=== PATIENT | female | born 1930 | race Caucasian/White ===

== ENCOUNTER 2017-12-29 09:02 | Emergency (ER) | payer MEDICARE, BC ==
[2017-12-29] MEDS ORDERED: Sodium Chloride 0.9% 10 ML Syringe FLUSH PRN (09:22)
[2017-12-29 09:32] VITALS: BP 143/92
[2017-12-29] MEDS ORDERED: Furosemide 40 MG/4 ML VIAL IV ONE (10:17)
[2017-12-29 10:19] LABS: CHLORIDE,CL 104 mmol/L (98-107)
[2017-12-29 10:23] LABS: SODIUM,NA 138 mmol/L (136-145)
--- NOTE | 2017-12-29 10:54 | EDM.PDOC ---
ED HPI GENERAL MEDICAL PROBLEM - General Chief Complaint: Respiratory Problem Stated Complaint: SOB Time Seen by Provider: 12/29/17 09:20 Source of Information: Reports: Patient - History of Present Illness INITIAL COMMENTS - FREE TEXT/NARRATIVE: Patient describes shortness of breath that started later last night and has worsened over the morning. She has noted a recent weight gain, but cannot tell me the amount. History of heart failure, stent placement. Denies chest pressure or pressure, no numbness or tingling or pain to her arms, jaw, or back. Onset: Gradual Onset Date: 12/28/17 Duration: Getting Worse Location: Reports: Chest Associated Symptoms: Reports: Shortness of Breath Chest Pain Score (Numeric/FACES): 4 - Related Data Allergies Allergy/AdvReac Type Severity Reaction Status Date / Time terazosin HCl [From Hytrin] Allergy Hives Verified 12/29/17 09:26 enalapril maleate AdvReac Cough Verified 12/29/17 09:26 [From Vasotec] enalaprilat dihydrate AdvReac Cough Verified 12/29/17 09:26 [From Vasotec] esomeprazole magnesium AdvReac Pain Verified 12/29/17 09:26 [From Nexium] gabapentin [From Neurontin] AdvReac Edema Verified 12/29/17 09:26 hydrocodone AdvReac Diarrhea Verified 12/29/17 09:26 levofloxacin [From Levaquin] AdvReac Edema Verified 12/29/17 09:26 losartan potassium AdvReac Cough Verified 12/29/17 09:26 [From Cozaar] Penicillins AdvReac Dizziness Verified 12/29/17 09:26 pramipexole di-HCl AdvReac Nausea Verified 12/29/17 09:26 [From Mirapex] procainamide [Procainamide] AdvReac Headache Verified 12/29/17 09:26 tetanus toxoid, adsorbed AdvReac Edema Verified 12/29/17 09:26 Home Meds: Home Meds Acetaminophen [Mapap] 325 - 650 mg PO Q4HR PRN 01/05/14 [History] Aspirin [Halfprin] 162 mg PO DAILY 01/05/14 [History] Calcium Carbonate/Vitamin D3 [Caltrate 600 Plus D3 Tablet] 1 tab PO DAILY [History] Fluticasone Propionate [Flonase] 2 spray NASBOTH DAILY 01/05/14 [History] Meclizine [Antivert] 12.5 mg PO Q8HR PRN 01/05/14 [History] Nitroglycerin [Nitrostat] 0.4 mg SL ASDIRECTED PRN 01/05/14 [History] Pravastatin [Pravachol] 80 mg PO DAILY 01/05/14 [History] Albuterol Sulfate [Proventil Hfa] 1 - 2 puff INH Q4H PRN 06/22/15 [History] Sodium Chloride 0.65% [[place] Saline] 2 spray NASBOTH DAILY 06/22/15 [History] Furosemide [Lasix] 20 mg PO DAILY #30 tablet 06/25/15 [Rx] Magnesium 250 mg PO BID #0 06/25/15 [Rx] Potassium Chloride 10 meq PO DAILY #30 capsule.er 06/25/15 [Rx] Warfarin [Coumadin] 1.25 - 2.5 mg PO BEDTIME 06/25/15 [History] Amiodarone [Pacerone] 100 mg PO BID 09/13/15 [History] Cefadroxil [Duricef] 500 mg PO Q12HR #14 cap 07/31/17 [Rx] Past Medical History Cardiovascular History: Reports: CAD, Heart Failure, High Cholesterol, Hypertension Other Cardiovascular History: a. flutter Gastrointestinal History: Reports: PUD Genitourinary History: Reports: Renal Disease Endocrine/Metabolic History: Reports: Diabetes, Type II - Past Surgical History Cardiovascular Surgical History: Reports: Other (See Below) ED ROS GENERAL - Review of Systems Review Of Systems: See Below Constitutional: Reports: No Symptoms HEENT: Reports: No Symptoms Respiratory: Reports: Shortness of Breath Cardiovascular: Reports: No Symptoms Endocrine: Reports: No Symptoms GI/Abdominal: Reports: No Symptoms : Reports: No Symptoms Musculoskeletal: Reports: No Symptoms Skin: Reports: No Symptoms Neurological: Reports: No Symptoms Psychiatric: Reports: No Symptoms Hematologic/Lymphatic: Reports: No Symptoms Immunologic: Reports: No Symptoms ED EXAM, GENERAL - Physical Exam Exam: See Below Exam Limited By: No Limitations General Appearance: Alert, WD/WN, No Apparent Distress Eye Exam: Bilateral Eye: Normal Inspection, PERRL Ears: Normal TMs Nose: Normal Inspection, Normal Mucosa, No Blood Throat/Mouth: Normal Inspection, Normal Lips, Normal Teeth, Normal Gums, Normal Oropharynx, Normal Voice, No Airway Compromise Head: Atraumatic, Normocephalic Neck: Normal Inspection, Supple, Non-Tender, Full Range of Motion Respiratory/Chest: Decreased Breath Sounds, Crackles Cardiovascular: Normal Peripheral Pulses, Regular Rate, Rhythm, No Edema, No Gallop, No JVD, No Murmur, No Rub Peripheral Pulses: 2+: Radial (L), Radial (R), Posterior Tibial (L), Posterior Tibial (R), Dorsalis Pedis (L), Dorsalis Pedis (R) GI/Abdominal: Normal Bowel Sounds, Soft, Non-Tender, No Organomegaly, No Distention, No Abnormal Bruit, No Mass Extremities: Normal Inspection, Normal Range of Motion, Non-Tender, Normal Capillary Refill, No Pedal Edema Neurological: Alert, Oriented, CN II-XII Intact, Normal Cognition, Normal Gait, Normal Reflexes, No Motor/Sensory Deficits Psychiatric: Normal Affect, Normal Mood Skin Exam: Warm, Dry, Intact, Normal Color, No Rash Lymphatic: No Adenopathy EKG INTERPRETATION EKG Date: 12/29/17 Time: 09:12 Rhythm: A-Fib Rate (Beats/Min): 89 [place]: Normal P-Wave: Absent QRS: Normal ST-T: Normal QT: Normal Comparison: No Change EKG Interpretation Comments: atrial fibrillation with aberrant conduction or PVC's old anterior MA Course - Vital Signs Last Recorded V/S: Last Vital Signs Temp 36.8 C 12/29/17 09:05 Pulse 92 12/29/17 09:05 Resp 20 12/29/17 09:05 BP 143/92 H 12/29/17 09:05 Pulse Ox 91 L 12/29/17 09:05 - Orders/Labs/Meds Labs: Laboratory Tests 12/29/17 12/29/17 12/29/17 Range/Units 09:45 09:45 09:45 WBC 5.7 (4.0-10.0) x10^3/uL RBC 4.13 (4.00-5.50) x10^6/uL Hgb 13.0 D (12.0-16.0) g/dL Hct 39.7 (33.0-47.0) % MCV 96.1 H D (78.0-93.0) fL MCH 31.5 (26.0-32.0) pg MCHC 32.7 (32.0-36.0) g/dL RDW Coeff of Yoel 13.6 (10.0-15.0) % Plt Count 163 (130-400) x10^3/uL Neut % (Auto) 74.1 (50.0-80.0) % Lymph % (Auto) 16.9 L (25.0-50.0) % [place] % (Auto) 7.4 (2.0-11.0) % Eos % (Auto) 1.4 (0.0-4.0) % Baso % (Auto) 0.2 (0.2-1.2) % PT 29.5 H (9.6-11.4) SEC INR 2.8 (2.0-3.5) D-Dimer, Quantitative 0.49 (<=0.58) mg/LFEU Sodium 138 (136-145) mmol/L Potassium 3.8 (3.5-5.1) mmol/L Chloride 104 (98-107) mmol/L Carbon Dioxide 24 (21-32) mmol/L Anion Gap 13.8 (10-20) mmol/L BUN 23 H (7-18) mg/dL Creatinine 1.3 H (0.55-1.02) mg/dL Est Cr Clr Drug Dosing 28.54 mL/min Estimated GFR (MDRD) 39 Glucose 156 H (74-106) mg/dL Calcium 8.6 (8.5-10.1) mg/dL Corrected Calcium 9.16 (8.5-10.1) mg/dL Magnesium (1.8-2.4) mg/dL Total Bilirubin 0.7 (0.2-1.0) mg/dL AST 19 (15-37) U/L ALT 29 (14-59) U/L Alkaline Phosphatase 81 (46-116) U/L Troponin I < 0.017 (<=0.056) ng/mL NT-Pro-B Natriuret Pep 4383 H (<=450) pg/mL Total Protein 7.0 (6.4-8.2) g/dL Albumin 3.3 L (3.4-5.0) g/dL Globulin 3.7 Albumin/Globulin Ratio 0.89 05/16/18 Range/Units 09:45 WBC (4.0-10.0) x10^3/uL RBC (4.00-5.50) x10^6/uL Hgb (12.0-16.0) g/dL Hct (33.0-47.0) % MCV (78.0-93.0) fL MCH (26.0-32.0) pg MCHC (32.0-36.0) g/dL RDW Coeff of Yoel (10.0-15.0) % Plt Count (130-400) x10^3/uL Neut % (Auto) (50.0-80.0) % Lymph % (Auto) (25.0-50.0) % [place] % (Auto) (2.0-11.0) % Eos % (Auto) (0.0-4.0) % Baso % (Auto) (0.2-1.2) % PT (9.6-11.4) SEC INR (2.0-3.5) D-Dimer, Quantitative (<=0.58) mg/LFEU Sodium (136-145) mmol/L Potassium (3.5-5.1) mmol/L Chloride (98-107) mmol/L Carbon Dioxide (21-32) mmol/L Anion Gap (10-20) mmol/L BUN (7-18) mg/dL Creatinine (0.55-1.02) mg/dL Est Cr Clr Drug Dosing mL/min Estimated GFR (MDRD) Glucose (74-106) mg/dL Calcium (8.5-10.1) mg/dL Corrected Calcium (8.5-10.1) mg/dL Magnesium 2.0 (1.8-2.4) mg/dL Total Bilirubin (0.2-1.0) mg/dL AST (15-37) U/L ALT (14-59) U/L Alkaline Phosphatase (46-116) U/L Troponin I (<=0.056) ng/mL NT-Pro-B Natriuret Pep (<=450) pg/mL Total Protein (6.4-8.2) g/dL Albumin (3.4-5.0) g/dL Globulin Albumin/Globulin Ratio Meds: Medications Discontinued Medications Generic Name Dose Route Start Last Admin Trade Name Freq PRN Reason Stop Dose Admin Furosemide 40 mg 12/29/17 10:17 12/29/17 10:25 Lasix IV 12/29/17 10:18 40 mg ONETIME ONE Administration Sodium Chloride 10 ml 12/29/17 09:22 Saline Flush FLUSH ASDIRECTED PRN Keep Vein Open - Re-Assessments/Exams Free Text/Narrative Re-Assessment/Exam: 01/03/18 12:32 I did discuss care with Dr. Tate on 12/29/17. Determined to discharge and increase lasix to BID with clinic visit Departure - Departure Time of Disposition: 11:15 Disposition: Home, Self-Care 01 Condition: Fair Clinical Impression: Diastolic CHF Qualifiers: Qualified Code(s): I50.31 - Acute diastolic (congestive) heart failure - Discharge Information Instructions: Heart Failure, [id number] Referrals: Snehal Tate, [Primary Care Provider] - Forms: ED Department Discharge Additional Instructions: Please follow up with Dr. Tate this week. Take 2 doses of your lasix/furosemide daily. So please take 20 mg in the AM and 20 mg again around 2 pm Make sure to return to the ER if you have any worsening of your shortness of breath You should weigh yourself daily to monitor your fluid levels and call your primary doctor with any 2-3 pound overnight weight gain or weight gain over 5 pounds in 2-3 days Please make sure to limit your salt intake Call the ER if you have any further questions or concerns. - Problem List & Annotations (1) Diastolic CHF SNOMED Code(s): 291140914, [id number] Code(s): I50.30 - UNSPECIFIED DIASTOLIC (CONGESTIVE) HEART FAILURE Status: Acute Priority: Medium - Problem List Review Problem List Initiated/Reviewed/Updated: Yes - Assessment/Plan Assessment:: CHF exacerbation Plan: Please follow up with Dr. Tate this week. Take 2 doses of your lasix/furosemide daily. So please take 20 mg in the AM and 20 mg again around 2 pm Make sure to return to the ER if you have any worsening of your shortness of breath You should weigh yourself daily to monitor your fluid levels and call your primary doctor with any 2-3 pound overnight weight gain or weight gain over 5 pounds in 2-3 days Please make sure to limit your salt intake Call the ER if you have any further questions or concerns.
== END 2017-12-29 11:15 | disposition home or self-care (01) ==
LOC: VM.ED 09:02
DX: I11.0 Hypertensive heart disease with heart failure (principal); I50.31 Acute diastolic (congestive) heart failure; E78.00 Pure hypercholesterolemia, unspecified; E11.9 Type 2 diabetes mellitus without complications; Z88.8 Allergy status to other drugs, medicaments and biological substances; Z88.5 Allergy status to narcotic agent; Z88.1 Allergy status to other antibiotic agents; Z88.7 Allergy status to serum and vaccine; Z79.82 Long term (current) use of aspirin; Z79.899 Other long term (current) drug therapy
CPT/HCPCS: 36415; 71045; 80053; 83735; 83880; 84484; 85025; 85379; 85610; 93005; 96374; 99285; J1940

== ENCOUNTER 2018-08-21 09:16 | Emergency (ER) | payer MEDICARE, BC ==
[2018-08-21 09:36] VITALS: BP 164/83
[2018-08-21] MEDS ORDERED: Furosemide 40 MG/4 ML VIAL IV ONE (09:36)
[2018-08-21] MEDS ORDERED: Sodium Chloride 0.9% 10 ML Syringe FLUSH PRN (09:36)
--- NOTE | 2018-08-21 10:14 | CR ---
[id number] RAD/RAD Chest PA And Lateral EXAM: RAD Chest PA And Lateral CLINICAL DATA: SYNCOPE. BRADYCARDIA. COMPARISON: CORRELATION IS MADE WITH THE EXAM OF DECEMBER 29, 2017. FINDINGS: There is mild edema. There are small bilateral effusions. The cardiomediastinal contour is stable. IMPRESSION: MILD TO MODERATE CHF. Vasiliy Bender MD 08/21/18 1013 Thank you for allowing us to participate in the care of your patient.
[2018-08-21 10:18] LABS: CHLORIDE,CL 106 mmol/L (98-107); SODIUM,NA 142 mmol/L (136-145)
[2018-08-21 10:22] LABS: ANION GAP 13.8 mmol/L (10-20)
--- NOTE | 2018-08-21 20:12 | EDM.PDOC ---
ED HPI GENERAL MEDICAL PROBLEM - General Chief Complaint: Cardiovascular Problem Time Seen by Provider: 08/21/18 09:25 Source of Information: Reports: Patient History Limitations: Reports: No Limitations - History of Present Illness INITIAL COMMENTS - FREE TEXT/NARRATIVE: Pt. presents to ER with complaints of weight gain and shortness of breath over the past 10 days. Denies any cough. No chest congestion. No fever or chills. She denies any substernal chest, jaw, arm, neck or back pain. Pt. states that she has CHF and takes lasix 20mg PO BID. She states that the onset of the symptoms have been gradual in nature. Onset: Today Onset Date: 08/21/18 Onset Time: 20:10 Location: Reports: Generalized - Related Data Allergies Allergy/AdvReac Type Severity Reaction Status Date / Time terazosin HCl [From Hytrin] Allergy Hives Verified 08/21/18 09:30 enalapril maleate AdvReac Cough Verified 08/21/18 09:30 [From Vasotec] enalaprilat dihydrate AdvReac Cough Verified 08/21/18 09:30 [From Vasotec] esomeprazole magnesium AdvReac Pain Verified 08/21/18 09:30 [From Nexium] gabapentin [From Neurontin] AdvReac Edema Verified 08/21/18 09:30 hydrocodone AdvReac Diarrhea Verified 08/21/18 09:30 levofloxacin [From Levaquin] AdvReac Edema Verified 08/21/18 09:30 losartan potassium AdvReac Cough Verified 08/21/18 09:30 [From Cozaar] Penicillins AdvReac Dizziness Verified 08/21/18 09:30 pramipexole di-HCl AdvReac Nausea Verified 08/21/18 09:30 [From Mirapex] procainamide [Procainamide] AdvReac Headache Verified 08/21/18 09:30 tetanus toxoid, adsorbed AdvReac Edema Verified 08/21/18 09:30 Home Meds: Home Meds Acetaminophen [Mapap] 325 - 650 mg PO Q4HR PRN 01/05/14 [History] Aspirin [Halfprin] 162 mg PO DAILY 01/05/14 [History] Calcium Carbonate/Vitamin D3 [Caltrate 600 Plus D3 Tablet] 1 tab PO DAILY [History] Fluticasone Propionate [Flonase] 2 spray NASBOTH DAILY 01/05/14 [History] Meclizine [Antivert] 12.5 mg PO Q8HR PRN 01/05/14 [History] Nitroglycerin [Nitrostat] 0.4 mg SL ASDIRECTED PRN 01/05/14 [History] Pravastatin [Pravachol] 80 mg PO DAILY 01/05/14 [History] Albuterol Sulfate [Proventil Hfa] 1 - 2 puff INH Q4H PRN 06/22/15 [History] Sodium Chloride 0.65% [[place] Saline] 2 spray NASBOTH DAILY 06/22/15 [History] Furosemide [Lasix] 20 mg PO DAILY #30 tablet 06/25/15 [Rx] Magnesium 250 mg PO BID #0 06/25/15 [Rx] Potassium Chloride 10 meq PO DAILY #30 capsule.er 06/25/15 [Rx] Warfarin [Coumadin] 1.25 - 2.5 mg PO BEDTIME 06/25/15 [History] Amiodarone [Pacerone] 100 mg PO BID 09/13/15 [History] Cefadroxil [Duricef] 500 mg PO Q12HR #14 cap 07/31/17 [Rx] Past Medical History Cardiovascular History: Reports: CAD, Heart Failure, High Cholesterol, Hypertension Other Cardiovascular History: a. flutter Respiratory History: Reports: Pneumonia, Recurrent, Other (See Below) Other Respiratory History: chronic cough Gastrointestinal History: Reports: PUD Genitourinary History: Reports: Renal Disease Neurological History: Reports: Vertigo Endocrine/Metabolic History: Reports: Diabetes, Type II Dermatologic History: Reports: Cellulitis - Past Surgical History Cardiovascular Surgical History: Reports: Other (See Below) Social & Family History - Tobacco Use Smoking Status *Q: Never Smoker ED ROS GENERAL - Review of Systems Review Of Systems: See Below Constitutional: Reports: No Symptoms HEENT: Reports: No Symptoms Respiratory: Reports: Shortness of Breath. Denies: Cough, Sputum Cardiovascular: Reports: No Symptoms, Blood Pressure Problem, Dyspnea on Exertion, Edema. Denies: Chest Pain Endocrine: Reports: No Symptoms GI/Abdominal: Reports: No Symptoms : Reports: No Symptoms Musculoskeletal: Reports: No Symptoms Skin: Reports: No Symptoms Neurological: Reports: No Symptoms Psychiatric: Reports: No Symptoms Hematologic/Lymphatic: Reports: No Symptoms Immunologic: Reports: No Symptoms ED EXAM, GENERAL - Physical Exam Exam: See Below General Appearance: Alert, WD/WN, No Apparent Distress Head: Atraumatic, Normocephalic Neck: Normal Inspection, Supple, Non-Tender, Full Range of Motion Respiratory/Chest: No Respiratory Distress, No Accessory Muscle Use, Crackles Cardiovascular: Normal Peripheral Pulses, Regular Rate, Rhythm, No Edema, No Gallop, No JVD, No Murmur, No Rub Peripheral Pulses: 3+: Radial (L), Radial (R) GI/Abdominal: Normal Bowel Sounds, Soft, Non-Tender, No Organomegaly, No Distention, No Abnormal Bruit, No Mass (Female) Exam: Deferred Rectal (Female) Exam: Deferred Back Exam: Normal Inspection, Full Range of Motion, NT Extremities: Normal Inspection, Normal Range of Motion, Non-Tender, Normal Capillary Refill, Other (3+ peripheral edema noted) Neurological: Alert, Oriented, CN II-XII Intact, Normal Cognition, Normal Gait, Normal Reflexes, No Motor/Sensory Deficits Psychiatric: Normal Affect, Normal Mood Skin Exam: Pallor Lymphatic: No Adenopathy Course - Vital Signs Last Recorded V/S: Last Vital Signs Temp 35.6 C 08/21/18 09:20 Pulse 103 H 08/21/18 09:20 Resp 18 08/21/18 09:20 BP 164/83 H 08/21/18 09:20 Pulse Ox 95 08/21/18 09:20 - Orders/Labs/Meds Orders: Active Orders 24 hr Category Date Time Status EKG Documentation Completion [RC] STAT Care 08/21/18 09:35 Active Peripheral IV Insertion Adult [OM.PC] Routine Oth 08/21/18 09:36 Ordered Labs: Laboratory Tests 08/21/18 08/21/18 08/21/18 Range/Units 09:45 09:45 09:45 WBC 5.8 (4.0-10.0) x10^3/uL RBC 4.23 (4.00-5.50) x10^6/uL Hgb 13.2 (12.0-16.0) g/dL Hct 41.0 (33.0-47.0) % MCV 96.9 H (78.0-93.0) fL MCH 31.2 (26.0-32.0) pg MCHC 32.2 (32.0-36.0) g/dL RDW Coeff of Yoel 13.9 (10.0-15.0) % Plt Count 152 (130-400) x10^3/uL Neut % (Auto) 68.8 (50.0-80.0) % Lymph % (Auto) 21.1 L (25.0-50.0) % [place] % (Auto) 8.9 (2.0-11.0) % Eos % (Auto) 0.9 (0.0-4.0) % Baso % (Auto) 0.3 (0.2-1.2) % PT 18.6 H D (9.6-11.4) SEC INR 1.8 L (2.0-3.5) Sodium 142 (136-145) mmol/L Potassium 3.8 (3.5-5.1) mmol/L Chloride 106 (98-107) mmol/L Carbon Dioxide 26 (21-32) mmol/L Anion Gap 13.8 (10-20) mmol/L BUN 27 H (7-18) mg/dL Creatinine 1.4 H (0.55-1.02) mg/dL Est Cr Clr Drug Dosing 26.50 mL/min Estimated GFR (MDRD) 36 Glucose 143 H (74-106) mg/dL Calcium 9.1 (8.5-10.1) mg/dL Corrected Calcium 9.66 (8.5-10.1) mg/dL Total Bilirubin 1.1 H (0.2-1.0) mg/dL AST 21 (15-37) U/L ALT 23 (14-59) U/L Alkaline Phosphatase 93 (46-116) U/L Troponin I < 0.017 (<=0.056) ng/mL NT-Pro-B Natriuret Pep 5836 H (<=450) pg/mL Total Protein 7.3 (6.4-8.2) g/dL Albumin 3.3 L (3.4-5.0) g/dL Globulin 4.0 Albumin/Globulin Ratio 0.83 Meds: Medications Discontinued Medications Generic Name Dose Route Start Last Admin Trade Name Freq PRN Reason Stop Dose Admin Furosemide 40 mg 08/21/18 09:36 08/21/18 09:56 Lasix IV 08/21/18 09:37 40 mg ONETIME ONE Administration Sodium Chloride 10 ml 08/21/18 09:36 Saline Flush FLUSH ASDIRECTED PRN Keep Vein Open - Radiology Interpretation Free Text/Narrative:: mild fluid overload on chest x-ray Departure - Departure Time of Disposition: 11:00 Disposition: Home, Self-Care 01 Condition: Good Clinical Impression: CHF (congestive heart failure) Instructions: Heart-Healthy Eating Plan, [id number], Heart Failure, Easy-to- Read Referrals: PCP,Unknown [Primary Care Provider] - Forms: ED Department Discharge Additional Instructions: Increase lasix to 2 tablets in the AM and 12 tablet at noon for 7 days. Decrease your intake of sodium. Take your weight daily. Follow-up with Dr. Tate in 7-10 days. - My Orders Last 24 Hours: My Active Orders 08/21/18 09:35 EKG Documentation Completion [RC] STAT 08/21/18 09:36 Peripheral IV Insertion Adult [OM.PC] Routine - Assessment/Plan Last 24 Hours: My Active Orders 08/21/18 09:35 EKG Documentation Completion [RC] STAT 08/21/18 09:36 Peripheral IV Insertion Adult [OM.PC] Routine Plan: Increase lasix to 2 tablets in the AM and 12 tablet at noon for 7 days. Decrease your intake of sodium. Take your weight daily. Follow-up with Dr. Tate in 7-10 days.
== END 2018-08-21 11:08 | disposition home or self-care (01) ==
LOC: VM.ED 09:16
DX: I11.0 Hypertensive heart disease with heart failure (principal); I50.9 Heart failure, unspecified; E11.9 Type 2 diabetes mellitus without complications; Z88.8 Allergy status to other drugs, medicaments and biological substances; Z88.1 Allergy status to other antibiotic agents; Z79.899 Other long term (current) drug therapy
CPT/HCPCS: 71046; 80053; 83880; 84484; 85025; 85610; 93005; 96374; 99285; J1940

== ENCOUNTER 2020-06-13 07:44 | Emergency (ER) | payer MEDICARE, BC ==
[2020-06-13] MEDS ORDERED: Oxymetazoline 0.05% Nasal Spray 30 ML Bottle NAS ONE (07:54)
--- NOTE | 2020-06-13 08:16 | EDM.PDOC ---
ED HPI GENERAL MEDICAL PROBLEM - General Stated Complaint: BLOODY NOSE Time Seen by Provider: 06/13/20 07:50 Source of Information: Reports: Patient, RN History Limitations: Reports: No Limitations - History of Present Illness INITIAL COMMENTS - FREE TEXT/NARRATIVE: Pt. presents to ER with complaints of epistaxis from [facility]. She states that it started at 0600 when she woke up this AM. She uses oxygen at home. It is not humidified. Pt. states that she can feel the blood running down the back of her throat. She is on coumadin (a-fib) and her INR was 2.2 on 05/24/2020. Denies any head or facial trauma. No history of previous serious epistaxis in the past requiring medical intervention. Onset: Today Onset Date: 06/13/20 Onset Time: 06:00 Location: Reports: Face - Related Data Allergies Allergy/AdvReac Type Severity Reaction Status Date / Time terazosin HCl [From Hytrin] Allergy Hives Verified 06/13/20 08:11 enalapril maleate AdvReac Cough Verified 06/13/20 08:11 [From Vasotec] enalaprilat dihydrate AdvReac Cough Verified 06/13/20 08:11 [From Vasotec] esomeprazole magnesium AdvReac Pain Verified 06/13/20 08:11 [From Nexium] gabapentin [From Neurontin] AdvReac Edema Verified 06/13/20 08:11 hydrocodone AdvReac Diarrhea Verified 06/13/20 08:11 levofloxacin [From Levaquin] AdvReac Edema Verified 06/13/20 08:11 losartan potassium AdvReac Cough Verified 06/13/20 08:11 [From Cozaar] Penicillins AdvReac Dizziness Verified 06/13/20 08:11 pramipexole di-HCl AdvReac Nausea Verified 06/13/20 08:11 [From Mirapex] procainamide [Procainamide] AdvReac Headache Verified 06/13/20 08:11 tetanus toxoid, adsorbed AdvReac Edema Verified 06/13/20 08:11 Home Meds: Home Meds Acetaminophen [Mapap] 325 - 650 mg PO Q4HR PRN 01/05/14 [History] Calcium Carbonate/Vitamin D3 [Caltrate 600 Plus D3 Tablet] 1 tab PO DAILY 01/05/14 [History] Fluticasone Propionate [Flonase] 2 spray NASBOTH DAILY 01/05/14 [History] Meclizine [Antivert] 12.5 mg PO Q8HR PRN 01/05/14 [History] Nitroglycerin [Nitrostat] 0.4 mg SL ASDIRECTED PRN 01/05/14 [History] Pravastatin [Pravachol] 80 mg PO DAILY 01/05/14 [History] Albuterol Sulfate [Proventil Hfa] 1 - 2 puff INH Q4H PRN 06/22/15 [History] Sodium Chloride 0.65% [[place] Saline] 2 spray NASBOTH DAILY 06/22/15 [History] Magnesium 250 mg PO BID #0 06/25/15 [Rx] Potassium Chloride 10 meq PO DAILY #30 capsule.er 06/25/15 [Rx] Clopidogrel [Plavix] 75 mg PO DAILY 12/08/18 [History] Furosemide [Lasix] 20 mg PO DAILY PRN 12/08/18 [History] Losartan [Cozaar] 25 mg PO DAILY 12/08/18 [History] Pantoprazole [ProTONIX] 40 mg PO DAILY 12/08/18 [History] Warfarin Sodium [Jantoven] 2.5 mg PO DAILY 12/08/18 [History] Past Medical History Cardiovascular History: Reports: CAD, Heart Failure, High Cholesterol, Hypertension Other Cardiovascular History: a. flutter Respiratory History: Reports: Pneumonia, Recurrent, Other (See Below) Other Respiratory History: chronic cough Gastrointestinal History: Reports: PUD Genitourinary History: Reports: Renal Disease Neurological History: Reports: Vertigo Endocrine/Metabolic History: Reports: Diabetes, Type II Dermatologic History: Reports: Cellulitis - Past Surgical History Cardiovascular Surgical History: Reports: Other (See Below) ED ROS GENERAL - Review of Systems Review Of Systems: See Below Constitutional: Reports: No Symptoms HEENT: Reports: Nosebleed Respiratory: Reports: No Symptoms Cardiovascular: Reports: No Symptoms Endocrine: Reports: No Symptoms GI/Abdominal: Reports: No Symptoms : Reports: No Symptoms Musculoskeletal: Reports: No Symptoms Skin: Reports: No Symptoms Neurological: Reports: No Symptoms Psychiatric: Reports: No Symptoms Hematologic/Lymphatic: Reports: No Symptoms Immunologic: Reports: No Symptoms ED EXAM, GENERAL - Physical Exam Exam: See Below Exam Limited By: No Limitations General Appearance: Alert, WD/WN, No Apparent Distress Eye Exam: Bilateral Eye: Normal Fundi, PERRL Nose: Other (active bleeding from L nare. ) Throat/Mouth: Other (blood in hypopharynx. Pt. expectorating blood clots.) Head: Atraumatic, Normocephalic Neck: Normal Inspection, Supple, Non-Tender, Full Range of Motion Respiratory/Chest: No Respiratory Distress, Lungs Clear, Normal Breath Sounds, No Accessory Muscle Use, Chest Non-Tender Cardiovascular: Normal Peripheral Pulses, No Edema, No Murmur, Irregularly Irregular Peripheral Pulses: 4+: Radial (L) GI/Abdominal: Soft, Non-Tender, No Mass (Female) Exam: Deferred Rectal (Female) Exam: Deferred Extremities: Normal Inspection, Normal Range of Motion, Non-Tender, No Pedal Edema, Normal Capillary Refill Neurological: Alert, Oriented, CN II-XII Intact, No Motor/Sensory Deficits Psychiatric: Normal Affect, Normal Mood Skin Exam: Warm, Dry, Intact, Normal Color, No Rash Lymphatic: No Adenopathy ED GENERAL MEDICAL PROCEDURES - Additional/Other Procedure(s) Other (Free Text) Procedure(s): 7.5 cm anterior/posterior pack placed in L nare without difficulty. approx. 2 sprays of oxymetazoline was instilled in L nare prior to placement. Approx. 7ml of air was used in the device. It was secured with tape to the side of the patient's face. Pt. tolerated the placement remarkably well. Course - Vital Signs Last Recorded V/S: Last Vital Signs Temp 36.3 C 06/13/20 07:50 Pulse 80 06/13/20 07:50 Resp 16 06/13/20 07:50 BP 153/88 H 06/13/20 07:50 Pulse Ox 91 L 06/13/20 07:50 - Orders/Labs/Meds Labs: Laboratory Tests 06/13/20 06/13/20 Range/Units 08:15 08:15 WBC 7.0 (4.0-10.0) x10^3/uL RBC 4.26 (4.00-5.50) x10^6/uL Hgb 13.4 (12.0-16.0) g/dL Hct 41.7 (33.0-47.0) % MCV 97.9 H (78.0-93.0) fL MCH 31.5 (26.0-32.0) pg MCHC 32.1 (32.0-36.0) g/dL RDW Coeff of Yoel 14.3 (10.0-15.0) % Plt Count 128 L (130-400) x10^3/uL Neut % (Auto) 78.0 (50.0-80.0) % Lymph % (Auto) 13.8 L (25.0-50.0) % [place] % (Auto) 6.6 (2.0-11.0) % Eos % (Auto) 1.3 (0.0-4.0) % Baso % (Auto) 0.3 (0.2-1.2) % PT 18.6 H (9.5-12.3) SEC INR 1.8 L (2.0-3.5) Meds: Medications Discontinued Medications Generic Name Dose Route Start Last Admin Trade Name Freq PRN Reason Stop Dose Admin Oxymetazoline HCl 1 ml 06/13/20 07:54 06/13/20 08:06 Nasal Decongestant [place] BARBRA 06/13/20 07:55 2 drop ONETIME ONE Administration Departure - Departure Time of Disposition: 08:45 Disposition: Home, Self-Care 01 Clinical Impression: Epistaxis - Discharge Information Instructions: Nosebleed, Adult Forms: ED Department Discharge Additional Instructions: Home to rest. Return to ER on Wednesday for removal of nasal packing. Sleep with head elevated for the next several days. Follow-up with [facility] in about a week. Take to your oxygen company about getting a humidifier for your oxygen. Sepsis Event Note (ED) - Focused Exam Vital Signs: Vital Signs Temp Pulse Resp BP Pulse Ox 06/13/20 07:50 36.3 C 80 16 153/88 H 91 L - Problem List Review Problem List Initiated/Reviewed/Updated: Yes - Assessment/Plan Plan: Home to rest. Return to ER on Wednesday for removal of nasal packing. Sleep with head elevated for the next several days. Follow-up with [facility] in about a week. Take to your oxygen company about getting a humidifier for your oxygen.
[2020-06-13 08:17] VITALS: BP 153/88; PULSE 80
== END 2020-06-13 08:45 | disposition home or self-care (01) ==
LOC: VM.ED 07:44
DX: R04.0 Epistaxis (principal); I25.10 Atherosclerotic heart disease of native coronary artery without angina pectoris; I11.0 Hypertensive heart disease with heart failure; I50.9 Heart failure, unspecified; E78.00 Pure hypercholesterolemia, unspecified; E11.9 Type 2 diabetes mellitus without complications; Z79.899 Other long term (current) drug therapy; Z79.01 Long term (current) use of anticoagulants; Z88.8 Allergy status to other drugs, medicaments and biological substances; Z88.5 Allergy status to narcotic agent; Z88.1 Allergy status to other antibiotic agents; Z88.0 Allergy status to penicillin; Z88.7 Allergy status to serum and vaccine; Z99.81 Dependence on supplemental oxygen; Z79.02 Long term (current) use of antithrombotics/antiplatelets
CPT/HCPCS: 30901; 30903; 36415; 85025; 85610; 99283; 99283-25; A9270-GY